=== PATIENT | female | born 1990 | race Hispanic/Latino ===

== ENCOUNTER 2024-04-15 13:26 | Outpatient (CLI) | payer OTHER | END 2024-04-15 13:27 | disposition home or self-care (01) | LOC: CSHULT 13:26 | DX: Z34.82 Encounter for supervision of other normal pregnancy, second trimester (principal); Z3A.20 20 weeks gestation of pregnancy | CPT/HCPCS: 76805 ==

== ENCOUNTER 2024-09-01 10:01 | Inpatient (IN) | payer MEDICAID, OTHER, SELFPAY ==
[2024-09-01 10:28] VITALS: BMI 32.8
[2024-09-01] MEDS ORDERED: Tranexamic Acid 1,000 MG/10 ML VIAL IVP PRN (10:57)
[2024-09-01] MEDS ORDERED: HYDROcodone/Acetaminophen 5/325 mg Tablet PO PRN ×2 (10:57→22:29)
[2024-09-01] MEDS ORDERED: Diphenoxylate HCl/Atropine Tablet PO PRN (10:57)
[2024-09-01] MEDS ORDERED: hydrALAZINE 20 MG/ML VIAL SLOW IVP PRN ×2 (10:57→22:29)
[2024-09-01] MEDS ORDERED: Methylergonovine 0.2 MG/ML VIAL IM PRN (10:57)
[2024-09-01] MEDS ORDERED: Acetaminophen 500 MG TAB PO PRN (10:57)
[2024-09-01] MEDS ORDERED: Carboprost 250 MCG/ML AMP IM PRN (10:57)
[2024-09-01] MEDS ORDERED: Lidocaine 1% (PF) 30 ML VIAL SC PRN (10:57)
[2024-09-01] MEDS ORDERED: Promethazine HCl 25 MG/ML VIAL IM PRN ×3 (10:57→22:29)
[2024-09-01] MEDS ORDERED: Ondansetron PF 4 MG/2 ML Vial IVP PRN ×3 (10:57→22:29)
[2024-09-01] MEDS ORDERED: fentaNYL 50 mcg/mL 1 mL Vial SLOW IVP PRN (10:57)
[2024-09-01] MEDS ORDERED: Oxytocin 30 units/NS 500 ML 500 ML IV SCH (11:00)
[2024-09-01 11:59] LABS: Hematocrit 32.9 % (34.9-44.5); Hemoglobin 10.3 g/dL (12.0-15.5); Mean Corpuscular HGB CONC 31.3 g/dL (32.0-36.0); Mean Corpuscular Hemoglobin 25.4 pg (27.0-33.0); Platelet Count 130 10x3/uL (150-450); RBC Distribution Width 14.1 % (11.5-14.5); Red Blood Cell (RBC) Count 4.06 10x6/uL (3.90-5.03); White Blood Cell (WBC) Count 9.7 10x3/uL (3.5-10.5)
[2024-09-01 12:22] LABS: Syphilis Antibody Nonreactive (Nonreactive); Syphilis Antibody Index 0.06 S/CO (<1.00 Non-Reactive)
[2024-09-01 12:23] LABS: HBsAg Index 0.21 S/CO (0-0.99); Hep B Surf Ag - L&D Non-Reactive S/CO (NonReactive)
[2024-09-01] MEDS: Oxytocin 30 units/NS 500 ML 500 ML IV SCH ×2 (12:40→19:36)
[2024-09-01] MEDS: fentaNYL/Ropivacaine Epidural 100 ML ONE (13:55)
[2024-09-01] MEDS ORDERED: diphenhydrAMINE 50 MG/ML VIAL IVP PRN (14:05)
[2024-09-01] MEDS ORDERED: Lactated Ringer's 500 ML IV PRN (14:05)
[2024-09-01] MEDS ORDERED: Moisturizing Cream (Eucerin) 113 GM JAR TOP PRN (14:05)
[2024-09-01] MEDS ORDERED: ePHEDrine Sulfate 50 MG/10 ML VIAL SLOW IVP PRN (14:05)
[2024-09-01] MEDS ORDERED: Acetaminophen 325 MG TAB PO PRN (14:05)
[2024-09-01] MEDS ORDERED: Naloxone HCl 0.4 mg/ml Vial IVP PRN ×2 (14:05)
[2024-09-01] MEDS ORDERED: Communication Order-Pharmacy FS SCH (14:15)
[2024-09-01] MEDS ORDERED: fentaNYL 2 mcg/Ropivacaine 0.2% Epidural 100 ML CADD EPIDURAL SCH (14:15)
[2024-09-01] MEDS: Lactated Ringer's 1,000 ML IV SCH (17:40)
[2024-09-01] MEDS: Ibuprofen 800 MG TAB PO PRN (20:55)
[2024-09-01] MEDS: Misoprostol 200 MCG TAB PR PRN (21:23)
[2024-09-01] MEDS ORDERED: Bisacodyl 10 MG SUPP PR PRN (22:29)
[2024-09-01] MEDS ORDERED: Boostrix 0.5 ML (Tdap) VIAL (>/=7 yrs of age) IM ONE (22:29)
[2024-09-01] MEDS ORDERED: Benzocaine-Menthol 82.5 ML CAN TOP PRN (22:29)
[2024-09-01] MEDS ORDERED: diphenhydrAMINE 25 MG CAP PO PRN (22:29)
[2024-09-01] MEDS ORDERED: Milk Of Magnesia 30 ML UDCUP PO PRN (22:29)
[2024-09-01] MEDS ORDERED: Lanolin Ointment 7 GM TUBE TOP PRN (22:29)
[2024-09-02] MEDS: Ibuprofen 800 MG TAB PO SCH (05:49)
[2024-09-02] MEDS: Ferrous Sulfate 325 MG TAB PO SCH (07:19)
[2024-09-02] MEDS: Prenatal Vitamin 1 TAB PO SCH (09:05)
[2024-09-02] MEDS: Docusate 100 MG CAP PO SCH (09:05)
[2024-09-03 08:39] VITALS: BP 123/71; TEMP 98.4
== END 2024-09-03 15:15 | disposition home or self-care (01) | DRG 807 ==
LOC: CSHLD 10:01 → CSHPP 22:10
PROVIDERS: ADMIT Family Medicine; ATTEND Family Medicine
PROC: 10E0XZZ Delivery of Products of Conception, External Approach (ICD-10-PCS; principal; 2024-09-01)
PROC: 3E0S3BZ Introduction of Anesthetic Agent into Epidural Space, Percutaneous Approach (ICD-10-PCS; 2024-09-01)
PROC: 0W8NXZZ Division of Female Perineum, External Approach (ICD-10-PCS; 2024-09-01)
DX: O42.02 Full-term premature rupture of membranes, onset of labor within 24 hours of rupture (principal); Z37.0 Single live birth; Z3A.40 40 weeks gestation of pregnancy; O34.211 Maternal care for low transverse scar from previous cesarean delivery; O75.89 Other specified complications of labor and delivery
CPT/HCPCS: 36415; 51702; 85027; 86780; 86850; 86900; 86901; 87340; J2590; J7120